=== PATIENT | female | born 1940 | race Caucasian/White ===

== ENCOUNTER 2016-11-28 10:51 | Day surgery (SDC) | payer OTHER ==
--- NOTE | ~2016-11-28 | OP ---
Record Of Operation [facility] [address] [place] [address] NAME: KRYSTYNA BAINS : 38 STATUS : [facility] [place] PAT#: [id number] AGE: 76 ADM/REG DATE : 11/28/16 MR#: [id number] REPORT SERV DATE: 11/28/16 DICTATED BY: TAYLOR GUZMAN DATE: 11/28/16 REPORT STATUS : Draft TRANSCRIBED BY: DASH DATE: 11/28/16 DATE OF PROCEDURE: 11/28/2016 PREPROCEDURE DIAGNOSIS: Radiation proctitis. POSTPROCEDURE DIAGNOSIS: Radiation proctitis. PROCEDURE: Flexible sigmoidoscopy with formalin instillation of 5% formalin. PROCEDURE IN DETAIL: The patient was taken to the endoscopy suite, positioned in the left lateral decubitus position. Informed consent was obtained, followed by IV sedation delivered by PICKING TABLE WORKER. Digital rectal exam was performed. Normal sphincter tone. No masses. The scope was entered through the anal canal. There appears to be circumferential bright red bleeding between the dentate line and 1 cm circumferentially with a few punctate areas proximal to this, but no higher than 5 cm. A flexible sigmoidoscopy was performed to the rectosigmoid junction were solid stool which was non bloody was noted. The rectum was instilled with 120 mL of 5% formalin which was left in place for 30 seconds, suction, and irrigated out x2, and then two punctate areas were spot treated at 1 cm. The patient tolerated the procedure well. We will repeat in eight weeks if necessary. It is my pleasure participating in the care of your patient. REBEKA/DASH Taylor Guzman M.D. / [id number] CC: Kirk Phelan M.D.
[~2016-11-28 10:51] MED LIST: AZO STANDARD PO; BENTYL10 PO; CANASA1SUP PR; CIP5 PO; CRANBERRY1 TAB OR; CYANO1000T PO; DITRO5 PO; EXCEDRIN MIGRA1 EAC1 PO; FLAGYL250 MG PO; GLUCCHONDR PO; IRON325 MG PO; LEVAQUIN750 MG PO; LEVSINTAB SL; LOP25 PO; LORT7 PO; LOTE20 PO; MAG OXIDE250 MG PO; MAGNESIUM 250MG OTC PO; MAGOX4 PO; MIRALAX POWDER1 PKT PO; MIRALAXPKT PO; NORV10 PO; NORV25 PO; PERCOCET1 TA4 PO; PRILO PO; REQUIP2 PO; ULTRAM50 PO; VITAMIN A8000 UNIT PO; VITAMIN C1000 MG PO; VITE PO; ZOFRAN4 PO; ZOFRAN8 PO; [UNRECOGNIZED DRUG - REMARK]
[2017-01-16] MEDS ORDERED: BENTYL10 PO (11:48)
[2017-01-16] MEDS ORDERED: MULTIVIT/MIN PO (11:50)
[2017-01-16] MEDS ORDERED: VITAMIN D31000 UNIT PO (11:52)
== END 2016-11-28 23:59 | disposition home or self-care (01) ==
LOC: DMU 10:51
PROVIDERS: Surgery
PROC: 0DJD8ZZ Inspection of Lower Intestinal Tract, Via Natural or Artificial Opening Endoscopic (ICD-10-PCS; principal; 2016-11-28 11:30)
DX: K62.7 Radiation proctitis (principal); I10 Essential (primary) hypertension; K21.9 Gastro-esophageal reflux disease without esophagitis; G89.29 Other chronic pain; M54.5 Low back pain; Z79.899 Other long term (current) drug therapy; Z79.891 Long term (current) use of opiate analgesic